=== PATIENT | female | born 1950 | race African-American/Black ===

== ENCOUNTER → 2018-04-08 | Outpatient (CLI) | payer MEDICARE, MEDICAID ==
[~2018-04-08] MED LIST: Bisacodyl PO; CARI350T PO; Docusate Sodium PO; HYDR-519 PO
== END | disposition home or self-care (01) ==
LOC: LAB 10:30
PROVIDERS: ATTEND Surgery
DX: C18.9 Malignant neoplasm of colon, unspecified (principal); E11.9 Type 2 diabetes mellitus without complications; I10 Essential (primary) hypertension
CPT/HCPCS: 36415; 82565; 84520

== ENCOUNTER → 2018-04-14 | Outpatient (CLI) | payer MEDICARE, MEDICAID ==
[~2018-04-14] MED LIST changes: +BARIUM SULFATE 450ML ORAL SUSP ONE; +IOHEXOL-300 100 ML BOTTLE ONE
== END | disposition home or self-care (01) ==
LOC: CT 08:36
PROVIDERS: ATTEND Surgery
DX: C18.9 Malignant neoplasm of colon, unspecified (principal); Z90.49 Acquired absence of other specified parts of digestive tract
CPT/HCPCS: 74177; Q9967

== ENCOUNTER 2018-06-20 19:01 | Emergency (ER) | payer MEDICARE, MEDICAID ==
[~2018-06-20] VITALS: Ht 154.9 cm; Wt 69.0 kg
[~2018-06-20 19:01] MED LIST changes: -BARIUM SULFATE 450ML ORAL SUSP ONE; -CARI350T PO; +DILT120C11 MT; +GABA-290 PO; -IOHEXOL-300 100 ML BOTTLE ONE; +S350 PO; +TRIA1TAB92 PO
[2018-06-20] MEDS ORDERED: MORPHINE SULFATE 4 MG/ML CPJ (NOT FOR IM USE) IV STA (20:38)
[2018-06-20] MEDS ORDERED: ONDANSETRON HCL 4MG/2ML INJ IV STA (20:38)
[2018-06-20] MEDS ORDERED: SODIUM CHLORIDE 0.9% 1,000 ML IV ONE (20:38)
[2018-06-20 21:12] LABS: BASOPHILS % 0.4 % (0.0-2.0); EOSINOPHILS % 2.1 % (0.0-5.0); HEMOGLOBIN. 12.3 g/dL (12.0-16.0); LYMPHOCYTES % 41.5 % (20.0-50.0); MEAN CORPUSCULAR HEMOGLOBIN 25.7 pg (28.0-32.0); MEAN CORPUSCULAR VOLUME 77.2 fL (81.0-99.0); MEAN PLATELET VOLUME 8.8 fl (7.4-10.4); MONOCYTES % 6.8 % (2.0-8.0); NEUTROPHILS % 49.2 % (40.0-76.0); PLATELET 348 x1000/uL (130-400); RED BLOOD CELL COUNT 4.79 mill/uL (4.2-5.4); RED CELL DISTRIBUTION WIDTH 16.8 % (11.6-14.6)
[2018-06-20 21:19] LABS: CHLORIDE 102 mEq/L (98-107)
[2018-06-20 21:20] LABS: PROTHROMBIN TIME 10.4 sec (9.1-11.1)
[2018-06-20] MEDS ORDERED: MORPHINE SULFATE 4 MG/ML CPJ (NOT FOR IM USE) IV ONE (22:45)
[2018-06-20 23:03] LABS: CLARITY URINE CLEAR (CLEAR); COLOR URINE YELLOW (YELLOW); KETONES URINE NEGATIVE (NEGATIVE); LEUKOCYTE ESTERASE URINE NEGATIVE (NEGATIVE); NITRITE URINE NEGATIVE (NEGATIVE); OCCULT BLOOD URINE NEGATIVE (NEGATIVE); PH URINE 6.5 (4.5-8.0); PROTEIN URINE NEGATIVE (NEGATIVE); SPECIFIC GRAVITY URINE 1.007 (1.005-1.030); UROBILINOGEN URINE 0.2 E.U./dL (0.2-1.0)
[2018-06-20] MEDS ORDERED: HYDROCODONE/ACETAMINOPHEN 5/325MG TABLET PO ONE ×2 (23:30)
[2018-06-20 23:40] VITALS: BP 139/57
== END 2018-06-20 23:40 | disposition home or self-care (01) ==
LOC: ER 19:01 → CANBEDREQ 06-21 03:22
DX: N20.0 Calculus of kidney (principal); G89.18 Other acute postprocedural pain; I10 Essential (primary) hypertension; E11.9 Type 2 diabetes mellitus without complications; F17.200 Nicotine dependence, unspecified, uncomplicated; Z98.890 Other specified postprocedural states; Z79.899 Other long term (current) drug therapy; Z88.6 Allergy status to analgesic agent; Z91.018 Allergy to other foods
CPT/HCPCS: 36415; 71045; 74176; 80053; 81003; 83605; 83690; 84484; 85025; 85610; 86850; 86900; 86901; 87040; 87086; 93005; 96374; 96375; 96376; 99285; 99406; J2270; J2405; J7030

== ENCOUNTER 2019-08-12 05:36 | Inpatient (IN) | payer MEDICARE, MEDICAID ==
[~2019-08-12] VITALS: Ht 157.5 cm; Wt 69.9 kg
[~2019-08-12 05:36] MED LIST changes: +CARI-166 PO; -S350 PO
[2019-08-12 06:31] LABS: BASOPHILS % 0.4 % (0.0-2.0); EOSINOPHILS % 0.8 % (0.0-5.0); HEMOGLOBIN. 12.1 g/dL (12.0-16.0); LYMPHOCYTES % 16.8 % (20.0-50.0); MEAN CORPUSCULAR HEMOGLOBIN 24.3 pg (28.0-32.0); MEAN CORPUSCULAR VOLUME 72.6 fL (81.0-99.0); MEAN PLATELET VOLUME 8.2 fl (7.4-10.4); MONOCYTES % 7.5 % (2.0-8.0); NEUTROPHILS % 74.5 % (40.0-76.0); PLATELET 428 x1000/uL (130-400); RED BLOOD CELL COUNT 4.96 mill/uL (4.2-5.4); RED CELL DISTRIBUTION WIDTH 16.8 % (11.6-14.6)
[2019-08-12 06:35] LABS: CHLORIDE 100 mEq/L (98-107)
[2019-08-12 06:38] LABS: INR 1.1; PARTIAL THROMBOPLASTIN TIME 30.1 sec (23.4-31.0)
[2019-08-12] MEDS ORDERED: LIDOCAINE HCL 1% 20ML VIAL (Pyxis) INJ ONE (06:55)
[2019-08-12] MEDS ORDERED: BACITRACIN 15GM TUBE TOP ONE (06:55)
[2019-08-12] MEDS ORDERED: HEPARIN SODIUM 1,000 UNIT/1ML VIAL IV ONE (06:56)
[2019-08-12] MEDS ORDERED: BACITRACIN 50,000 UNITS/VIAL ONE (06:56)
[2019-08-12] MEDS ORDERED: NORMAL SALINE 0.9% 10 ML SYR ONE (06:56)
[2019-08-12] MEDS ORDERED: BUPIVACAINE HCL/PF 0.5% (5MG/ML) 10ML ONE (06:56)
[2019-08-12] MEDS ORDERED: THROMBIN (BOVINE) 5000 UNITS/VIAL TOP ONE (06:56)
[2019-08-12] MEDS ORDERED: FENTANYL CITRATE/PF 50MCG/ML 2ML VIAL ONE ×4 (07:41→08:58)
[2019-08-12] MEDS ORDERED: MIDAZOLAM HCL 2 MG/2 ML VIAL ONE (07:41)
[2019-08-12] MEDS ORDERED: PROPOFOL 200MG/20ML VIAL IV ONE (07:41)
[2019-08-12] MEDS ORDERED: GLYCOPYRROLATE 0.2 MG/ML 2ML VIAL ONE (07:41)
[2019-08-12] MEDS ORDERED: SUCCINYLCHOLINE CHLORIDE 200MG/10ML IV ONE (07:42)
[2019-08-12] MEDS ORDERED: LIDOCAINE HCL/PF 1% 10 MG/ML 5ML VIAL ONE (07:42)
[2019-08-12] MEDS ORDERED: ONDANSETRON HCL 4MG/2ML INJ ONE (07:42)
[2019-08-12] MEDS ORDERED: METOCLOPRAMIDE HCL 10MG/2ML VIAL ONE (07:42)
[2019-08-12] MEDS ORDERED: KCL 10MEQ/50ML PREMIX 200 ML IV PRN (07:45)
[2019-08-12] MEDS ORDERED: KCL 20MEQ/100ML PREMIX 100 ML IV PRN (08:00)
[2019-08-12] MEDS ORDERED: DYR5 PO (08:48)
[2019-08-12] MEDS ORDERED: IOHEXOL-300 100 ML BOTTLE ONE (09:22)
[2019-08-12] MEDS ORDERED: ONDANSETRON HCL 4MG/2ML INJ IV PRN (10:30)
[2019-08-12] MEDS ORDERED: MORPHINE SULFATE 2 MG/ML CPJ (NOT FOR IM USE) IV PRN (10:30)
[2019-08-12] MEDS ORDERED: MEPERIDINE HCL/PF 25MG/ML CPJ IV PRN ×2 (10:30)
[2019-08-12] MEDS ORDERED: SODIUM CHLORIDE 0.9% 1,000 ML IV NR (11:33)
[2019-08-12] MEDS ORDERED: LABETALOL HCL 5MG/ML VIAL 20ML IV SCH (12:00)
[2019-08-12] MEDS: HYDROMORPHONE HCL/PF 2MG/ML CPJ IV PRN ×3 (12:24→13:17)
[2019-08-12 13:39] LABS: CHLORIDE 104 mEq/L (98-107)
[2019-08-12 14:45] VITALS: BP 183/100
[2019-08-12] MEDS ORDERED: TRIA1TAB92 PO (15:14)
[2019-08-12] MEDS: MORPHINE SULFATE 4 MG/ML CPJ (NOT FOR IM USE) IV PRN ×3 (15:23→22:20)
[2019-08-12 16:00] VITALS: BP 179/93
[2019-08-12] MEDS: DEXT 5%/0.45% NACL KCL 20MEQ/L 1,000 ML IV SCH (17:13)
[2019-08-12] MEDS ORDERED: DEXTROSE 50% WATER 50ML SYRINGE IV PRN (17:30)
[2019-08-12] MEDS: BLOOD SUGAR DIAGNOSTIC STRIP TEST SCH ×2 (18:14→20:43)
[2019-08-12] MEDS: INSULIN LISPRO 100 UNITS/ML SUBCUT SCH ×2 (18:31→22:25)
[2019-08-12 20:00] VITALS: BP 173/87
[2019-08-12] MEDS: CLONIDINE 0.1MG TABLET PO PRN (20:43)
[2019-08-13] VITALS: BP 139/68
[2019-08-13] MEDS: DEXT 5%/0.45% NACL KCL 20MEQ/L 1,000 ML IV SCH ×3 (01:50→20:33)
[2019-08-13] MEDS: MORPHINE SULFATE 4 MG/ML CPJ (NOT FOR IM USE) IV PRN ×9 (01:50→21:41)
[2019-08-13 04:00] VITALS: BP 128/50
[2019-08-13] MEDS: BLOOD SUGAR DIAGNOSTIC STRIP TEST SCH ×4 (06:43→20:44)
[2019-08-13] MEDS: INSULIN LISPRO 100 UNITS/ML SUBCUT SCH ×4 (07:50→20:44)
[2019-08-13 08:00] VITALS: BP 187/95
[2019-08-13] MEDS: CLONIDINE 0.1MG TABLET PO PRN ×2 (08:57→08:58)
[2019-08-13 12:00] VITALS: BP 121/65
[2019-08-13 15:36] LABS: BASOPHILS % 0.1 % (0.0-2.0); EOSINOPHILS % 0.4 % (0.0-5.0); HEMOGLOBIN. 10.2 g/dL (12.0-16.0); LYMPHOCYTES % 11.2 % (20.0-50.0); MEAN CORPUSCULAR HEMOGLOBIN 24.2 pg (28.0-32.0); MEAN CORPUSCULAR VOLUME 73.4 fL (81.0-99.0); MEAN PLATELET VOLUME 8.5 fl (7.4-10.4); MONOCYTES % 7.3 % (2.0-8.0); PLATELET 313 x1000/uL (130-400); RED BLOOD CELL COUNT 4.23 mill/uL (4.2-5.4)
[2019-08-13 15:38] LABS: CHLORIDE 103 mEq/L (98-107)
[2019-08-13 16:00] VITALS: BP 140/75
[2019-08-13] MEDS: ACETAMINOPHEN 325MG TABLET PO PRN (16:45)
[2019-08-13] MEDS: SODIUM CHLORIDE 0.9% 1,000 ML IV SCH (18:26)
[2019-08-13] MEDS ORDERED: ENOXAPARIN 40MG/0.4ML SYR SUBCUT NR (18:30)
[2019-08-13 20:00] VITALS: BP 156/84
[2019-08-13] MEDS ORDERED: POTASSIUM CHLORIDE 20MEQ TABLET SR PO NR (20:30)
[2019-08-14] VITALS: BP 195/112
[2019-08-14] MEDS: MORPHINE SULFATE 4 MG/ML CPJ (NOT FOR IM USE) IV PRN ×2 (01:00→16:22)
[2019-08-14] MEDS: CLONIDINE 0.1MG TABLET PO PRN ×2 (01:15→14:25)
[2019-08-14] MEDS: ACETAMINOPHEN 325MG TABLET PO PRN (03:05)
[2019-08-14 04:00] VITALS: BP 156/89
[2019-08-14] MEDS: SODIUM CHLORIDE 0.9% 1,000 ML IV SCH (04:15)
[2019-08-14] MEDS: BLOOD SUGAR DIAGNOSTIC STRIP TEST SCH ×4 (06:38→21:13)
[2019-08-14] MEDS ORDERED: PAPAVERINE HCL 30 MG/ML 2ML IV ONE (07:25)
[2019-08-14] MEDS ORDERED: BACITRACIN 15GM TUBE TOP ONE (07:25)
[2019-08-14] MEDS ORDERED: LIDOCAINE HCL 1% 20ML VIAL (Pyxis) INJ ONE (07:26)
[2019-08-14] MEDS ORDERED: THROMBIN (BOVINE) 5000 UNITS/VIAL TOP ONE (07:26)
[2019-08-14] MEDS ORDERED: BUPIVACAINE HCL/PF 0.5% (5MG/ML) 10ML ONE (07:27)
[2019-08-14] MEDS ORDERED: HEPARIN SODIUM 1,000 UNIT/1ML VIAL IV ONE (07:27)
[2019-08-14] MEDS ORDERED: BACITRACIN 50,000 UNITS/VIAL ONE (07:28)
[2019-08-14] MEDS: INSULIN LISPRO 100 UNITS/ML SUBCUT SCH ×4 (07:50→21:00)
[2019-08-14 07:54] LABS: CHLORIDE 111 mEq/L (98-107)
[2019-08-14 08:00] VITALS: BP 162/86
[2019-08-14 08:00] LABS: BASOPHILS % 0.1 % (0.0-2.0); HEMATOCRIT. 30.5 % (36.0-48.0); HEMOGLOBIN. 9.9 g/dL (12.0-16.0); LYMPHOCYTES % 10.2 % (20.0-50.0); MEAN CORPUSCULAR HEMOGLOBIN 24.3 pg (28.0-32.0); MEAN CORPUSCULAR VOLUME 74.6 fL (81.0-99.0); MEAN PLATELET VOLUME 8.7 fl (7.4-10.4); NEUTROPHILS % 81.7 % (40.0-76.0); PLATELET 323 x1000/uL (130-400); RED BLOOD CELL COUNT 4.08 mill/uL (4.2-5.4); RED CELL DISTRIBUTION WIDTH 17.2 % (11.6-14.6)
[2019-08-14] MEDS ORDERED: LIDOCAINE HCL/PF 1% 10 MG/ML 5ML VIAL ONE (08:57)
[2019-08-14] MEDS ORDERED: GLYCOPYRROLATE 0.2 MG/ML 2ML VIAL ONE (08:57)
[2019-08-14] MEDS ORDERED: FENTANYL CITRATE/PF 50MCG/ML 2ML VIAL ONE (08:57)
[2019-08-14] MEDS ORDERED: MIDAZOLAM HCL 2 MG/2 ML VIAL ONE (08:57)
[2019-08-14] MEDS ORDERED: METOCLOPRAMIDE HCL 10MG/2ML VIAL ONE (08:57)
[2019-08-14] MEDS ORDERED: PROPOFOL 200MG/20ML VIAL IV ONE (08:57)
[2019-08-14] MEDS ORDERED: ONDANSETRON HCL 4MG/2ML INJ ONE (08:57)
[2019-08-14] MEDS ORDERED: SUCCINYLCHOLINE CHLORIDE 200MG/10ML IV ONE (08:57)
[2019-08-14] MEDS ORDERED: ALBUMIN HUMAN 12.5G/250ML (5%) IV ONE (09:14)
[2019-08-14] MEDS ORDERED: FENTANYL CITRATE/PF 50MCG/ML 5ML VIAL ONE (09:24)
[2019-08-14] MEDS ORDERED: HYDROMORPHONE HCL/PF 2MG/ML (OR) ONE (10:44)
[2019-08-14] MEDS ORDERED: SODIUM CHLORIDE 0.9% 1,000 ML IV ONE (11:15)
[2019-08-14] MEDS ORDERED: MEPERIDINE HCL/PF 25MG/ML CPJ IV PRN ×2 (11:15)
[2019-08-14] MEDS: HYDROMORPHONE HCL/PF 2MG/ML CPJ IV PRN ×5 (11:43→12:33)
[2019-08-14] MEDS ORDERED: ENOXAPARIN 60MG/0.6ML SYR SUBCUT SCH (12:00)
[2019-08-14] MEDS: ONDANSETRON HCL 4MG/2ML INJ IV PRN ×2 (12:37→19:19)
[2019-08-14] MEDS: MORPHINE SULFATE 2 MG/ML CPJ (NOT FOR IM USE) IV PRN ×5 (12:43→13:30)
[2019-08-14] MEDS ORDERED: MORPHINE SULFATE 10 MG/ML CPJ ONE (13:11)
[2019-08-14] MEDS: METOPROLOL TARTRATE 25MG TABLET PO SCH ×2 (16:18→21:00)
[2019-08-14] MEDS ORDERED: ONDANSETRON HCL 4MG/2ML INJ IV PRN (18:00)
[2019-08-14] MEDS ORDERED: HYDROMORPHONE HCL/PF 2MG/ML CPJ IV PRN (18:03)
[2019-08-14] MEDS ORDERED: CLONIDINE 0.2MG TABLET PO PRN (18:30)
[2019-08-14] MEDS ORDERED: AMLODIPINE 10MG TABLET PO SCH (18:30)
[2019-08-14 20:17] VITALS: BP 102/60
[2019-08-14] MEDS ORDERED: SODIUM CHLORIDE 0.9% 500 ML IV NR (22:00)
[2019-08-14 22:53] LABS: MEAN CORPUSCULAR HEMOGLOBIN 24.3 pg (28.0-32.0); MEAN CORPUSCULAR VOLUME 79.3 fL (81.0-99.0); PLATELET 175 x1000/uL (130-400); RED BLOOD CELL COUNT 2.25 mill/uL (4.2-5.4); RED CELL DISTRIBUTION WIDTH 16.8 % (11.6-14.6)
[2019-08-14 23:00] LABS: CHLORIDE 117 mEq/L (98-107)
[2019-08-14 23:02] LABS: HEMATOCRIT 17.9 % (36.0-48.0); HEMOGLOBIN 5.5 g/dL (12.0-16.0)
[2019-08-15 00:04] LABS: CREATINE KINASE MB FRACTION 16.1 ng/mL (0.5-3.6)
[2019-08-15] MEDS ORDERED: IOHEXOL-350 100 ML BOTTLE ONE (00:42)
[2019-08-15] MEDS ORDERED: VECURONIUM BROMIDE 10 MG/VIAL IV ONE (01:00)
[2019-08-15] MEDS ORDERED: SODIUM CHLORIDE 0.9% 10ML VIAL ONE (01:00)
[2019-08-15] MEDS ORDERED: ETOMIDATE 2MG/ML 10ML VIAL IV ONE (01:00)
== END 2019-08-15 03:30 | disposition expired | DRG 271 ==
LOC: OR 05:36 → 6EST 05:37 → 6WST 08-14 17:24 → 3WST 08-14 23:35
PROVIDERS: ADMIT Internal Medicine; ATTEND Internal Medicine
PROC: 04CD0ZZ Extirpation of Matter from Left Common Iliac Artery, Open Approach (ICD-10-PCS; principal; 2019-08-12)
PROC: 04CL0ZZ Extirpation of Matter from Left Femoral Artery, Open Approach (ICD-10-PCS; 2019-08-12)
PROC: 047L3ZZ Dilation of Left Femoral Artery, Percutaneous Approach (ICD-10-PCS; 2019-08-12)
PROC: 047D3ZZ Dilation of Left Common Iliac Artery, Percutaneous Approach (ICD-10-PCS; 2019-08-12)
PROC: 04CL0ZZ Extirpation of Matter from Left Femoral Artery, Open Approach (ICD-10-PCS; 2019-08-12)
PROC: 04UL0KZ Supplement Left Femoral Artery with Nonautologous Tissue Substitute, Open Approach (ICD-10-PCS; 2019-08-12)
PROC: 041K0JH Bypass Right Femoral Artery to Right Femoral Artery with Synthetic Substitute, Open Approach (ICD-10-PCS; 2019-08-14)
PROC: 04CK0ZZ Extirpation of Matter from Right Femoral Artery, Open Approach (ICD-10-PCS; 2019-08-14)
PROC: 04UK0JZ Supplement Right Femoral Artery with Synthetic Substitute, Open Approach (ICD-10-PCS; 2019-08-14)
PROC: 041L0JJ Bypass Left Femoral Artery to Left Femoral Artery with Synthetic Substitute, Open Approach (ICD-10-PCS; 2019-08-14)
PROC: 047L3ZZ Dilation of Left Femoral Artery, Percutaneous Approach (ICD-10-PCS; 2019-08-14)
PROC: 047K3ZZ Dilation of Right Femoral Artery, Percutaneous Approach (ICD-10-PCS; 2019-08-14)
PROC: 047D3ZZ Dilation of Left Common Iliac Artery, Percutaneous Approach (ICD-10-PCS; 2019-08-14)
PROC: 047C3ZZ Dilation of Right Common Iliac Artery, Percutaneous Approach (ICD-10-PCS; 2019-08-14)
DX: I70.223 Atherosclerosis of native arteries of extremities with rest pain, bilateral legs (principal); E87.1 Hypo-osmolality and hyponatremia; I74.5 Embolism and thrombosis of iliac artery; E11.51 Type 2 diabetes mellitus with diabetic peripheral angiopathy without gangrene; E11.65 Type 2 diabetes mellitus with hyperglycemia; E78.5 Hyperlipidemia, unspecified; E87.6 Hypokalemia; F17.210 Nicotine dependence, cigarettes, uncomplicated; D72.829 Elevated white blood cell count, unspecified; G89.29 Other chronic pain
CPT/HCPCS: 36415; 71250; 76000; 80048; 82550; 82553; 82962; 83735; 84484; 85027; 85379; 88304; 88311; 93005; 94640; 94660; C1766; C1768; C1769; C1884; C1893; J0330; J1170; J1644; J1650; J1815; J2175; J2250; J2270; J2405; J2440; J2704; J2765; J3010; J3480; J3490; J7030; J7040; P9041; Q9967